=== PATIENT | male | born 1955 | race Caucasian/White ===

== ENCOUNTER 2017-09-25 11:36 | Day surgery (SDC) | payer BC ==
[~2017-09-25] VITALS: Ht 175.3 cm; Wt 95.0 kg
[2017-09-25] MEDS ORDERED: CLARITIN,ALAVAR10 MG PO (12:06)
[2017-09-25 12:13] VITALS: BP 133/80
[2017-09-25 15:20] VITALS: BP 144/70
== END 2017-09-25 15:45 | disposition home or self-care (01) ==
LOC: SDC 11:36
DX: H33.41 Traction detachment of retina, right eye (principal)
CPT/HCPCS: J0690; J2250; J2405; J3300; J7120